=== PATIENT | female | born 1965 | race American Indian/Alaskan Native ===

== ENCOUNTER 2020-08-16 11:40 | Emergency (ER) | payer BC ==
[2020-08-16] MEDS ORDERED: ONDANSETRON 4 MG/2 ML INJ ONE (12:10)
[2020-08-16] MEDS ORDERED: SODIUM CHLORIDE 0.9% 1000 ML 1,000 ML ONE (12:10)
[2020-08-16] MEDS ORDERED: SODIUM CHLORIDE 0.9% 1000 ML 1,000 ML IV ONE (19:39)
[2020-08-16] MEDS ORDERED: diphenhydrAMINE 50 MG/ML VIAL IV ONE (19:39)
[2020-08-16] MEDS ORDERED: KETOROLAC 30 MG/1 ML INJ IV ONE (19:39)
[2020-08-16] MEDS ORDERED: METOCLOPRAMIDE 10 MG/2 ML INJ IV ONE (19:39)
--- NOTE | 2020-08-16 20:27 | Emergency Department Report ---
ED N/V/D HPI - General Time Seen by Provider: 08/16/20 19:38 Source: patient, RN notes reviewed Limitations: No Limitations - History of Present Illness Initial comments: Patient 55-year-old female with history of hypertension who presents for abdominal pain nausea vomiting diarrhea after eating leftover chicken yesterday. Patient states I believe that her food poisoning. Patient denies fevers or chills. States nausea vomiting multiple episodes this is a recurring problem for this patient. States symptoms usually treated with Phenergan IM. Last p.o. intake 2 hours ago last nausea vomiting 2 hours ago. Abdominal pain described as cramping 5/10, symptoms are relieved by nothing tried. Symptoms are exacerbated by p.o. intake. MD complaint: nausea, vomiting, diarrhea, abdominal pain Onset/Timin -: days(s) Description of Vomiting: food contents Description of Diarrhea: water Associated Abdominal Pain: Yes (cramping ) Severity: moderate Pain Scale: 5 Quality: cramping, aching Consistency: constant Improves with: none Worsens with: eating Context: possible food poisoning Associated Symptoms: nausea/vomiting - Related Data Previous Rx's Medication Instructions Recorded Last Taken Type Promethazine [Phenergan] 25 mg PO Q8HR PRN #9 tab 08/16/20 Unknown Rx ED Review of Systems ROS: Stated complaint: Other details as noted in HPI Constitutional: denies: chills, fever Eyes: denies: eye pain, eye discharge, vision change ENT: denies: ear pain, throat pain Respiratory: denies: cough, shortness of breath, wheezing Cardiovascular: denies: chest pain, palpitations Endocrine: no symptoms reported Gastrointestinal: abdominal pain, nausea, vomiting, diarrhea Genitourinary: denies: urgency, dysuria, discharge Musculoskeletal: denies: back pain, joint swelling, arthralgia Skin: denies: rash, lesions Neurological: denies: headache, weakness, paresthesias Psychiatric: denies: anxiety, depression Hematological/Lymphatic: denies: easy bleeding, easy bruising ED Past Medical Hx - Medications Home Medications: Home Medications Medication Instructions Recorded Confirmed Last Taken Type Promethazine [Phenergan] 25 mg PO Q8HR PRN #9 tab 08/16/20 Unknown Rx ED Physical Exam - General General appearance: alert, in no apparent distress - Head Head exam: Present: atraumatic, normocephalic - Eye Eye exam: Present: normal appearance - ENT ENT exam: Present: mucous membranes moist - Neck Neck exam: Present: normal inspection - Respiratory Respiratory exam: Present: normal lung sounds bilaterally. Absent: respiratory distress, wheezes, stridor - Cardiovascular Cardiovascular Exam: Present: regular rate, normal rhythm, normal heart sounds. Absent: systolic murmur, diastolic murmur, rubs, gallop - GI/Abdominal GI/Abdominal exam: Present: soft, normal bowel sounds. Absent: distended, tenderness, guarding, rebound, rigid, bruit, hernia - Rectal Rectal exam: Present: deferred - Extremities Exam Extremities exam: Present: normal inspection, full ROM. Absent: tenderness - Back Exam Back exam: Present: normal inspection, full ROM. Absent: tenderness, CVA tenderness (R), CVA tenderness (L) - Neurological Exam Neurological exam: Present: alert, oriented X3, CN II-XII intact, normal gait - Psychiatric Psychiatric exam: Present: normal affect, normal mood - Skin Skin exam: Present: warm, dry, intact, normal color. Absent: rash ED Medical Decision Making - Lab Data Result diagrams: 08/16/20 20:20 08/16/20 20:20 Labs 08/16/20 08/16/20 20:20 20:20 WBC 13.9 H RBC 5.41 H Hgb 17.0 H Hct 50.5 H MCV 93 MCH 31 MCHC 34 RDW 14.8 Plt Count 233 Lymph % (Auto) 10.4 L [place] % (Auto) 8.8 H Eos % (Auto) 0.0 Baso % (Auto) 0.2 Lymph # (Auto) 1.4 [place] # (Auto) 1.2 H Eos # (Auto) 0.0 Baso # (Auto) 0.0 Seg Neutrophils % 80.6 H Seg Neutrophils # 11.2 H Sodium 139 Potassium 3.9 Chloride 99.1 Carbon Dioxide 22 Anion Gap 22 BUN 22 H Creatinine 0.8 Estimated GFR > 60 BUN/Creatinine Ratio 28 Glucose 141 H Calcium 9.0 Total Bilirubin 0.50 AST 18 ALT 10 Alkaline Phosphatase 57 Total Protein 7.1 Albumin 4.2 Albumin/Globulin Ratio 1.4 Lipase 15 - Medical Decision Making Patient not tolerating p.o. intake, labs noted likely dehydration however , patient advises she is ready to go and cannot wait for further work-up, abdomen is soft nontender patient is tolerating p.o. intake without nausea vomiting at this time there is no fever or chills, patient declines UA patient declines , imagery, however given improvement in symptoms , treatment for nausea vomiting mild dehydration is reasonable. Patient will be DC'd home prescription for p.o. Phenergan as needed nausea vomiting will continue to hydrate, patient will follow-up with primary care doctor in 2 to 3 days, as this is a recurring problem for the past 3 to 4 years. Patient rates symptoms at 1/10 at this time. Patient appears well-hydrated well-nourished with no acute distress patient will be DC'd home in stable condition at this time Critical care attestation.: If time is entered above; I have spent that time in minutes in the direct care of this critically ill patient, excluding procedure time. ED Disposition Clinical Impression: Nausea vomiting and diarrhea, Mild dehydration Disposition: DC-01 TO HOME OR SELFCARE Is pt being admited?: No Does the pt Need Aspirin: No Condition: Stable Instructions: Acute Nausea and Vomiting (ED), Dehydration (ED) Prescriptions: Promethazine [Phenergan] 25 mg PO Q8HR PRN #9 tab PRN Reason: Nausea Referrals: BHAVESH HOPKINS MD [Primary Care Provider] - 3-5 Days Forms: Work/School Release Form(ED) Time of Disposition: 21:39
[2020-08-16 20:56] LABS: Basophils % (Auto) 0.2 % (0.0-1.8); Hematocrit 50.5 % (30.3-42.9); Lymphocytes # (Auto) 1.4 K/mm3 (1.2-5.4); Lymphocytes % (Auto) 10.4 % (13.4-35.0); Mean Corpuscular HGB Conc 34 % (30-34); Mean Corpuscular Volume 93 fl (79-97); Monocytes # (Auto) 1.2 K/mm3 (0.0-0.8); Monocytes % (Auto) 8.8 % (0.0-7.3); Platelet Count 233 K/mm3 (140-440); Red Blood Count 5.41 M/mm3 (3.65-5.03); Red Cell Distribution Width 14.8 % (13.2-15.2)
[2020-08-16 21:23] LABS: Alanine Aminotransferase 10 units/L (7-56); Albumin 4.2 g/dL (3.9-5); BUN/Creatinine Ratio 28; Blood Urea Nitrogen 22 mg/dL (7-17); Hemolysis Index 25
[2020-08-16] MEDS ORDERED: PROMETHAZINE 25 MG TAB PO ONE (22:09)
[2020-08-16] MEDS ORDERED: PROMETHAZINE 25 MG TAB ONE (22:09)
== END 2020-08-16 22:15 | disposition home or self-care (01) ==
LOC: ED 11:40
DX: E86.0 Dehydration (principal)
CPT/HCPCS: 36415; 80053; 83690; 85025; 96374; 96375; 99283; J1200; J1885; J2405; J2765; J7030; Q0169

== ENCOUNTER 2020-10-05 08:20 | Outpatient (CLI) | payer BC ==
--- NOTE | 2020-10-05 10:17 | Mammography Report ---
BILATERAL DIGITAL SCREENING MAMMOGRAM WITH CAD HISTORY: Screening mammogram. TECHNIQUE: Routine digital mammographic imaging performed. This examination was interpreted with alex browning benefit of Computer-aided Detection analysis. COMPARISON: None currently available. The patient reports prior mammograms at an outside facility and these will be requested. FINDINGS: Breast Density: scattered fibroglandular appearance of the breast tissue. Digital CC and MLO views demonstrate focal asymmetry in the right inferior breast at posterior depth. Benign-appearing coarse round calcification bilaterally. No suspicious findings within the left terri ast. IMPRESSION: Right inferior posterior breast focal asymmetry for which comparison to prior mammograms is recommend ed to assess stability. We will request prior mammograms and an addendum will be added to this repor t once they are received. BIRADS 0-Incomplete: Needs additional imaging evaluation NOTE: WE WILL RECALL THE PATIENT FOR THIS ADDITIONAL EVALUATION. FURTHER INFORMATION: According to the [employer], yearly mammograms are recommend ed starting at age 40 and continuing as long as a woman is in good health. Clinical Breast Exams shou ld be part of a periodic health exam-about every 3 years for women in their 20s and 30s and every yea r for women 40 and over. Breast self exam is an option for women starting in their 20s. Any breast ch kendra noted on a breast self exam should be reported promptly to the patient's healthcare provider. Br east MRI is recommended for women with an approximately 20-25% or greater lifetime risk of breast can cer, including women with a strong family history of breast or ovarian cancer and women who have been treated for Hodgkin's disease. A negative Mammography report should not discourage follow up or biopsy of a clinically significant f inding and/or abnormality. Dense breast tissue may obscure small neoplasms. The patient will be entered into a reminder system with a target due date for the next screening mamm ogram. Signer Name: Rajan Blanco MD Signed: 10/05/2020 10:12 AM Workstation Name: [id number]
== END 2020-10-05 08:21 | disposition home or self-care (01) ==
LOC: MAMMO 08:20
PROVIDERS: ATTEND Internal Medicine
DX: Z12.31 Encounter for screening mammogram for malignant neoplasm of breast (principal)
CPT/HCPCS: 77067

== ENCOUNTER 2020-12-01 10:07 | Outpatient (CLI) | payer BC ==
--- NOTE | 2020-12-01 11:21 | Ultrasound Report ---
RIGHT DIGITAL DIAGNOSTIC MAMMOGRAM WITH CAD CONVENTIONAL, 12/01/2020 RIGHT LIMITED BREAST ULTRASOUND CLINICAL INFORMATION / INDICATION: Patient presents as a callback from screening mammogram for furthe r evaluation of a nodular density in the right breast. ABNORMAL MAMMO TECHNIQUE: Digital right mammographic imaging was performed. Spot compression views were obtained. Li mited ultrasound was performed. This examination was interpreted with the benefit of Computer-Aided D etection (CAD) analysis. COMPARISON: Prior mammogram 10/05/2020 FINDINGS: Breast Density: There are scattered areas of fibroglandular density. MAMMOGRAPHIC FINDINGS: Spot compression views reveal a persistent 1.5 cm oval circumscribed mass in t he 7:00 position of the right breast located approximately 11 cm from the nipple. Targeted ultrasound performed for further evaluation. There are stable benign-appearing calcifications in the right laura st and a stable biopsy clip in the right breast. ULTRASOUND FINDINGS: Targeted ultrasound evaluation was performed of the area of interest. Correspo nding with the nodular density seen mammographically, there is an oval circumscribed hypoechoic mass in the right breast 7:00 position located 10 cm from the nipple measuring up to 1.2 x 0.4 x 1.1 cm. T he mass is parallel. A focus of peripheral vascularity is demonstrated. IMPRESSION: 1. An oval circumscribed hypoechoic mass accounts for the mammographic finding and is considered prob ably benign, most likely representing a fibroadenoma. Recommend right breast ultrasound in 6 months t o ensure stability. Follow up recommendation: Short term follow up in 6 months. BI-RADS Category 3: Probably Benign. Followup in 6 months. A "normal" or negative report should not discourage follow up or biopsy of a clinically significant f inding. A written summary of these findings will be mailed to the patient. The patient will be entered into a mammography reporting system which will generate a reminder letter for the patient's next appointmen t at the appropriate interval. According to the [employer], yearly mammograms are recommended starting at age 40 and continuing as long as a woman is in good health. Breast MRI is recommended for women with an kandy roximately 20-25% or greater lifetime risk of breast cancer, including women with a strong family his tory of breast or ovarian cancer and women who have been treated for Hodgkin's disease. Signer Name: Carmen Oseguera MD Signed: 12/01/2020 11:17 AM Workstation Name: [id number]
== END 2020-12-01 10:08 | disposition home or self-care (01) ==
LOC: MAMMO 10:07
PROVIDERS: ATTEND Internal Medicine
DX: R92.1 Mammographic calcification found on diagnostic imaging of breast (principal); N63.13 Unspecified lump in the right breast, lower outer quadrant

== ENCOUNTER 2021-01-06 09:10 | Outpatient (CLI) | payer BC ==
[2021-01-06 09:43] LABS: Basophils % (Auto) 0.4 % (0.0-1.8); Eosinophils # (Auto) 0.2 K/mm3 (0.0-0.4); Hematocrit 36.7 % (30.3-42.9); Hemoglobin 12.9 gm/dl (10.1-14.3); Lymphocytes # (Auto) 1.5 K/mm3 (1.2-5.4); Lymphocytes % (Auto) 34.1 % (13.4-35.0); Mean Corpuscular HGB Conc 35 % (30-34); Mean Corpuscular Volume 92 fl (79-97); Monocytes # (Auto) 0.4 K/mm3 (0.0-0.8); Monocytes % (Auto) 8.6 % (0.0-7.3); Platelet Count 183 K/mm3 (140-440); Red Blood Count 3.97 M/mm3 (3.65-5.03); Red Cell Distribution Width 14.6 % (13.2-15.2)
[2021-01-06 10:04] LABS: BUN/Creatinine Ratio 13; Blood Urea Nitrogen 10 mg/dL (7-17); Calcium 8.9 mg/dL (8.4-10.2); Chol/HDL Ratio 2.61 %; HDL Cholesterol 72 mg/dL (40-59); Hemolysis Index 3; LDL Cholesterol,Direct 130 mg/dL (50-130)
[2021-01-09 13:58] LABS: Vitamin D, 25-OH, D2 46 ng/mL
== END 2021-01-06 09:11 | disposition home or self-care (01) ==
LOC: LAB 09:10
PROVIDERS: ATTEND Internal Medicine
DX: E78.5 Hyperlipidemia, unspecified (principal); R79.89 Other specified abnormal findings of blood chemistry; D51.9 Vitamin B12 deficiency anemia, unspecified; R68.89 Other general symptoms and signs; R13.19 Other dysphagia; R94.6 Abnormal results of thyroid function studies
CPT/HCPCS: 36415; 80048; 80061; 82306; 82607; 83036; 84443; 85025